=== PATIENT | male | born 1970 | race Caucasian/White ===

== ENCOUNTER 2023-10-05 06:10 | Inpatient (IN) ==
--- NOTE | 2023-09-16 14:00 | PAT Medication Instructions ---
Medication Instructions Date of Service September 16, 2023 Home Medications Medication Instructions Recorded triamcinolone acetonide 0.1 % 1 applic topical BID #80 grams 09/16/22 topical ointment omeprazole 20 mg capsule,delayed release 20 mg PO QAM triamcinolone acetonide 0.1 % topical ointment 1 applic topical BID albuterol sulfate 90 mcg/actuation aerosol inhaler 2 puff inhalation BID losartan 50 mg tablet 50 mg PO BID STOP taking 24 hours before surgery triamcinolone acetonide 0.1 % topical ointment 1 applic topical BID DO NOT take the morning of surgery losartan 50 mg tablet 50 mg PO BID Take morning of surgery With a small sip of water, OTHERWISE NOTHING TO EAT OR DRINK AFTER MIDNIGHT: omeprazole 20 mg capsule,delayed release 20 mg PO QAM albuterol sulfate 90 mcg/actuation aerosol inhaler 2 puff inhalation BID(please bring with you to hospital day of surgery if possible) Take evening before surgery albuterol sulfate 90 mcg/actuation aerosol inhaler 2 puff inhalation BID losartan 50 mg tablet 50 mg PO BID Other Notes If you have any questions please call us at [phone] or [phone] or [phone] or [phone]
--- NOTE | 2023-09-21 11:14 | Anesthesiology Consultation ---
Date of Service September 21, 2023 Assessment & Plan (1) Encounter for pre-operative examination: - upcoming [place] PCP medical clearance 09/26/23. PAT testing to be faxed to [facility]. Chart Review Chart Review: Pending: Refer to Additional Notes / Consult section and Patient seen in Pre Admission Testing Teaching & Discussion Pre-Anesthesia Teaching/Discussion Notes: Instructed NPO after midnight before surgery, except medications with 15 cc of water. Medication instructions provided according to the PAT guidelines. History Surgery Operation Date: 10/05/23 12:25 Proposed Procedures p C6 Corpectomy, Spinal Cord Monitoring - Ziggy Garay DO Height/Weight Height: 5 ft 5 in Weight: 76 kg Allergies Allergy/AdvReac Type Severity Reaction Status Date / Time celecoxib [From Celebrex] Allergy Unknown listed in Verified 09/21/23 11:26 [place] records No Known Drug Allergies Allergy Verified 09/13/23 08:28 Medications Home Medications Medication Instructions Recorded Confirmed Last Taken omeprazole 20 mg capsule,delayed 20 mg PO QAM 06/16/20 09/13/23 Unknown release triamcinolone acetonide 0.1 % 1 applic topical BID #80 grams 09/16/22 09/13/23 Unknown topical ointment albuterol sulfate 90 mcg/actuation 2 puff inhalation BID 09/13/23 09/13/23 Unknown aerosol inhaler losartan 50 mg tablet 50 mg PO BID 09/13/23 09/13/23 Unknown Past Medical History Medical History (Updated 09/21/23 @ 11:11 by Krystina Claudio PA-C) Asthma uses inhaler daily, unknown triggers, PFTs just done through the [place] GERD (gastroesophageal reflux disease) controlled, stable per pt Hypertension variable per pt Patient denies h/o stroke, seizures, heart attack, heart failure, DM, blood clots/DVTs or blood transfusions. Exercise / Class Metabolic Activity II 4-5 Yardwork/Stairs/Walk up hill (denies chest discomfort or shortness of breath with 1 FOS) Past Family History Family History (Updated 06/16/20 @ 14:25 by Bisi Loredo RN) Other No family history of adverse response to anesthesia Past Surgical History Surgical History (Updated 09/13/23 @ 08:37 by Gaby Gil RN) History of repair of rotator cuff right History of vasectomy Hx of arthroscopy of left knee x 2 Past Anesthesia History No Hx of Anesthesia Complications and No Family Hx of Anesthesia Complications History of PONV No Hx of PONV and No Hx of Motion Sickness Social History Smoking Status: Never smoker tobacco type: smokeless tobacco Do You Dip or Chew Tobacco: Yes (3 cans/week-advised) Hx Alcohol Use: Yes Alcohol type: beer alcohol intake frequency: a few times a week Hx Substance Use: No substance use type: does not use Review of Systems Snoring, denies witnessed apneas. Patient denies chest pain, shortness of breath, dyspnea on exertion, fever, chills, or palpitations. Physical Exam Vital Signs Vitals BP 256/95 P 71 TEMP 98.4 SP02 97% on RA RESP 17 Physical Patient resting comfortably in chair in no acute distress, alert and oriented, responding appropriately throughout visit Full cervical extension range of motion without pain TMD 3.5 finger breadths Mallampati Score 2 Dentition: intact, denies chipped or loose teeth, caps/crowns, implants or bridges Lungs: normal respiratory effort. Good air movement, clear throughout to auscultation, no adventitious breath sounds Cardiac: regular rate and rhythm, no murmurs noted Carotid arteries: negative bruit bilat Lab Results Anesthesia Preop Results Results Anesthesia Widget: WBC 4.55 K/ul (4.8-10.8) L 09/21/23 Hgb 13.8 g/dl (14.0-18.0) L 09/21/23 Hct 39.1 % (42.0-52.0) L 09/21/23 Plt 168 K/uL (130-400) 09/21/23 Na 137 mmol/L (136-145) 09/21/23 K 3.8 mmol/L (3.5-5.1) 09/21/23 Cl 102 mmol/L (98-107) 09/21/23 CO2 27 mmol/L (21-32) 09/21/23 BUN 10 mg/dl (6-23) 09/21/23 Creat 0.81 mg/dl (0.6-1.4) 09/21/23 Glucose Level 91 mg/dl (70-99(Fasting)) 09/21/23 PT 11.5 Seconds (9.0-12.0) 09/21/23 PTT 28.2 Seconds (21.0-31.0) 09/21/23 INR 1.1 (0.9-1.1) 09/21/23 Urine Color Yellow 09/21/23 Urine Appearance Clear (Clear) 09/21/23 Urine pH 5.5 (4.5-7.5) 09/21/23 Urine Specific [place] 1.011 (1.000-1.030) 09/21/23 Urine Protein Negative (Negative) 09/21/23 Urine Glucose (UA) Negative (Negative) 09/21/23 Urine Ketones Trace (Negative) H 09/21/23 Urine Blood Negative (Negative) 09/21/23 Urine Nitrite Negative (Negative) 09/21/23 Urine Bilirubin Negative (Negative) 09/21/23 Urine Urobilinogen Negative (Negative) 09/21/23 Urine Leukocyte Esterase Negative (Negative) 09/21/23 Blood Type O Negative 09/21/23 Antibody Screen NEGATIVE 09/21/23 Testing Electrocardiogram Date: 09/21/23 NSR, rate 72 bpm Chest X-Ray Date: 09/21/23 No acute cardiopulmonary findings
[~2023-10-05 06:10] MED LIST: ACETAMINOPHEN 500 MG TAB PO SCH; ALLERGY Noted to ORDERED Medication SCH; CeleBREX 200 MG CAP PO SCH; GABAPENTIN 900 MG DOSE PO SCH; LR 15ML/HR IV SCH; LR 60ML/HR IV SCH; ceFAZolin 2000MG 2,000 MG/15 ML SYR IV SCH
[2023-10-05] MEDS ORDERED: ATROPINE SULFATE 0.1 MG/ML 10ML SYR IV PRN (06:47)
[2023-10-05] MEDS ORDERED: PROMETHAZINE HCL 12.5 MG in SODIUM CHLORIDE 0.9% 50 ML IV PRN ×2 (06:47→10:49)
[2023-10-05] MEDS ORDERED: ONDANSETRON INJ 2 MG/ML 2 ML VIAL IV PRN ×2 (06:47→10:49)
[2023-10-05] MEDS ORDERED: HYDROmorphone INJ 1 MG/ML SYRINGE IV PRN ×2 (06:47→10:49)
[2023-10-05] MEDS ORDERED: LABETALOL HCL IV 5 MG/ML 20ML IV PRN (06:47)
[2023-10-05] MEDS ORDERED: fentaNYL citrate PF 100 MCG/2 ML VIAL ONE (06:51)
[2023-10-05] MEDS ORDERED: MIDAZOLAM HCL 1 MG/ML 2ML VIAL ONE (06:51)
[2023-10-05] MEDS ORDERED: ROCURONIUM BROMIDE 10 MG/ML 5 ML VIAL IV ONE (06:55)
[2023-10-05] MEDS ORDERED: FAMOTIDINE/PF 20 MG/2 ML VIAL IV ONE (06:55)
[2023-10-05] MEDS ORDERED: BUPIVACAINE/EPINEPHRINE 0.25% 1:200,000 30 ML VIAL ONE (07:19)
[2023-10-05] MEDS ORDERED: ceFAZolin 330 MG/ML 1 GM VIAL ONE (07:19)
--- NOTE | 2023-10-05 07:40 | History & Physical Bridge Note ---
Date of Service October 05, 2023 History & Physical Bridge Note I have examined the patient, reviewed the History & Physical and in the interval since the performance of the History & Physical I have noted the following changes of clinical significance: no changes noted
--- NOTE | 2023-10-05 07:41 | History & Physical Report ---
Date of Service October 05, 2023 Assessment & Plan (1) Cervical stenosis of spinal canal: Plan: C6 corpectomy History of Present Illness Chief Complaint: Neck and arm pain Primary Care Provider: Roseann Bullard PA-C This is a 53-year-old male with chronic persistent neck and arm pain after fail ing course of nonoperative care is here for surgical invention. Allergies Allergy/AdvReac Type Severity Reaction Status Date / Time celecoxib [From Celebrex] Allergy Mild listed in Verified 10/05/23 06:52 [facility]- [facility] per patient No Known Drug Allergies Allergy Unknown Verified 10/05/23 06:54 Home Medications Medication Instructions Recorded Confirmed Type omeprazole 20 mg capsule,delayed 20 mg PO QAM 06/16/20 10/05/23 History release triamcinolone acetonide 0.1 % 1 applic topical BID #80 grams 09/16/22 10/05/23 Rx topical ointment albuterol sulfate 90 mcg/actuation 2 puff inhalation BID PRN 09/13/23 10/05/23 History aerosol inhaler Shortness Of Breath Or Wheezing losartan 50 mg tablet 50 mg PO BID 09/13/23 10/05/23 History Past Med/Surg History Medical History (Updated 10/05/23 @ 07:41 by Ziggy Garay DO) GERD (gastroesophageal reflux disease) controlled, stable per pt Hypertension variable per pt Asthma uses inhaler daily, unknown triggers, [facility] Surgical History History of vasectomy History of repair of rotator cuff right Hx of arthroscopy of left knee x 2 Family History (Updated 06/16/20 @ 14:25 by Bisi Loredo RN) Other No family history of adverse response to anesthesia Social History (Updated 06/14/22 @ 14:45 by Whit Starkey MA) Smoking Status: Never smoker Tobacco Type: Smokeless Tobacco (Dip or Chew) Second Hand Exposure: No; Do You Dip or Chew Tobacco: Yes (3 cans/week-advised); Tobacco Cessation Education Requested by Patient: No Hx Alcohol Use: Yes Alcohol type: beer Hx Substance Use: No Preferred Language: [place] Communication Ability: 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
[2023-10-05] MEDS ORDERED: HYDROmorphone INJ 2 MG/ML SYR/VIAL ONE (08:15)
[2023-10-05] MEDS ORDERED: DEXAMETHASONE SOD INJ 4 MG/ML VIAL ONE (08:18)
[2023-10-05] MEDS ORDERED: ONDANSETRON INJ 2 MG/ML 2 ML VIAL ONE (08:18)
[2023-10-05] MEDS ORDERED: PROPOFOL IV EMULSION 10 MG/ML 20 ML VIAL IV ONE (08:18)
[2023-10-05] MEDS ORDERED: LIDOCAINE 2% 2 ML VIAL/AMP(20MG/ML) INFIL ONE (08:18)
[2023-10-05] MEDS ORDERED: METOCLOPRAMIDE HCL INJ 5 MG/ML 2 ML VIAL ONE (08:18)
[2023-10-05] MEDS ORDERED: ePHEDrine sulfate 50 MG/5 ML SYR ONE (08:21)
[2023-10-05] MEDS ORDERED: SUGAMMADEX SODIUM 200 MG/2 ML VIAL IV ONE (08:42)
[2023-10-05] MEDS ORDERED: KETOROLAC 30 MG/ML VIAL ONE (08:44)
[2023-10-05] MEDS ORDERED: FLOSEAL HEMOSTATIC MATRIX 10ML TOP ONE (09:11)
--- NOTE | 2023-10-05 09:11 | Operative Report ---
Post Operative Report Pre & Post Diagnosis Operation Date: 10/05/23 07:45 Pre-Op Diagnosis: Cervical spinal stenosis with radiculopathy Post-Op Diagnosis: Same I identified the patient and participated in the time-out.: Yes Procedure Operation Date: 10/05/23 07:45 Actual Procedures #1 anterior cervical corpectomy with bilateral foraminotomies C6. #2 anterior cervical arthrodesis C5-C7. #3 placement of 23 mm peek cage C5-C7. #4 placement locally harvested morselized autograft combined with I factor in the interbody cage. #5 placement of K2 M plate and screws from C5-C7. Surgeon Ziggy Garay, DO Gelatin Maker Utility Yolanda Combs Estimated Blood Loss 10 Findings Consistent with Post-Op Diagnosis Specimens None Indications This is a 53-year-old male who presents above-mentioned diagnosis of failed course of nonoperative care is here for surgical invention. Description of Procedure Patient was met with identified informed consent obtained. Patient was then taken to the operative suite underwent patient placed in supine position ingestible head Marquez head of product. All bony promises well-padded I suspected to ensure no external precipice spinal. This point the anterior cervical spine was prepped and draped in a sterile fashion. With assistance of fluoroscopy identified the C6 vertebral body and a transverse incision was placed along the right anterior aspect of the cervical spine overlying this region. Blunt dissection with the assistance of bipolar electrocautery was then performed down to exposing the anterior cervical spine from C5-C7. Self-retaining tractors placed. I then performed a complete discectomy of C5-C6 out to the uncovertebral joints bilaterally followed by C6-C7. Paulina distracting pins were then placed in C5 and C7 to distract across the C C6 vertebral body. A complete corpectomy was then performed including removal of all posterior annular fibers longitudinal ligament bilateral foraminotomies performed. Endplates were to subcortical mean bone and a 23 mm peek cage filled with locally harvested morselized autograft and I factor tapped in position. Distracting apparatus was removed and a K2 M plate and screws applied with the assistance of fluoroscopy. The incision was then copiously irrigated explored to ensure no damage to surrounding structures or remaining bleeding. 10 round MELODY drain inserted. Incision was then closed with 2 Vicryl in the fascia and 4 Monocryl for final closure. Steri-Strips sterile dressings placed. Patient waken taken to PACU stable condition. Please note spinal cord monitoring was utilized at the procedure no changes noted. Lastly Yolanda Combs was present that the entire surgery involved the patient positioning complex portion of the surgery and final skin closure. I attest to the content of the Intraoperative Record and any orders documented therein. Any exceptions are noted below.
--- NOTE | 2023-10-05 10:04 | Fluoroscopy Report ---
INTRAOPERATIVE RADIOGRAPHS CLINICAL HISTORY: Cervical spinal fusion. Fluoro time: 11 seconds Ka,r: 3.30 mGy FINDINGS: 2 spot fluoroscopic views of the cervical spine are presented. There has been corpectomy of C6 with anterior fusion at C5-C7. The orthopedic hardware appears intact. A surgical drain is in sophie ce. An endotracheal tube is noted. IMPRESSION: Intraoperative images from cervical spine fusion surgery as above. Electronically signed by: Nilesh Davis M.D. 10/05/2023 10:03 AM
--- NOTE | 2023-10-05 10:28 | Anesthesiology Progress Note ---
Date of Service October 05, 2023 Anesthesia Post Procedure Vital Signs Vital Signs: Temp Pulse Pulse Resp BP BP Pulse Ox 10/05/23 10:10 88 18 150/94 H 97 10/05/23 10:00 73 14 144/90 H 98 10/05/23 09:50 74 16 152/88 H 98 10/05/23 09:40 87 20 138/82 99 10/05/23 09:30 36.3 C L 93 H 14 136/86 99 10/05/23 06:55 36.7 C 75 18 139/96 97 O2 Del Method O2 Flow Rate 10/05/23 10:10 Nasal Cannula 2 10/05/23 10:00 Oxymask 3 10/05/23 09:50 Oxymask 4 10/05/23 09:40 Oxymask 4 10/05/23 09:30 Oxymask 6 10/05/23 06:55 Room Air Pain Intensity Neck: Pain Intensity: 3 Transfer of Care Handoff Completed per policy Notes Mental Status: alert / awake / arousable Patient Amnestic to Procedure: Yes Nausea / Vomiting: adequately controlled Pain: adequately controlled Airway Patency, RR, SpO2: stable & adequate BP & HR: stable & adequate Hydration State: stable & adequate Anesthetic Complications: no major complications apparent
[2023-10-05] MEDS ORDERED: FAMOTIDINE 20 MG TAB PO PRN (10:49)
[2023-10-05] MEDS ORDERED: NALOXONE HCL 0.4 MG/1 ML VIAL/CARP IV PRN (10:49)
[2023-10-05] MEDS ORDERED: DO NOT ADMINISTER PNEUMOCOCCAL VACCINE PRN (10:49)
[2023-10-05] MEDS ORDERED: MAGNESIUM HYDROXIDE SUSP 30 ML UDC PO PRN (10:49)
[2023-10-05] MEDS ORDERED: RACEPINEPHRINE 2.25% NEBU SOLN 0.5 ML VIAL INH PRN (10:49)
[2023-10-05] MEDS ORDERED: METOCLOPRAMIDE HCL INJ 5 MG/ML 2 ML VIAL IV PRN (10:49)
[2023-10-05] MEDS ORDERED: dexAMETHasone 8 MG in SYRINGE 0 ML IV PRN (10:49)
[2023-10-05] MEDS ORDERED: LORazepam 0.5 MG TAB PO PRN (10:49)
[2023-10-05] MEDS ORDERED: LACTATED RINGER'S 1,000 ML IV SCH (10:49)
[2023-10-05] MEDS ORDERED: ALUMINUM/MAGNESIUM SUSP 30 ML UDC PO PRN (10:49)
[2023-10-05] MEDS ORDERED: LORazepam 2 MG/1 ML VIAL IV PRN (10:49)
[2023-10-05] MEDS ORDERED: ACETAMINOPHEN 1,000 MG/100 ML VIAL IV PRN (10:49)
[2023-10-05] MEDS ORDERED: ONDANSETRON 4 MG OD TAB PO PRN (10:49)
[2023-10-05] MEDS ORDERED: traMADol HCL 50 MG TABLET PO PRN (10:49)
[2023-10-05] MEDS ORDERED: SOD PHOSPHATE/SOD BIPHOSPHATE ENEMA 132 ML BTL PR PRN (10:49)
[2023-10-05] MEDS ORDERED: bisacodyL 10 MG SUPP PR PRN (10:49)
[2023-10-05] MEDS ORDERED: oxyCODONE HCL IR 5 MG TAB (IMMEDIATE RELEASE) PO PRN (10:49)
[2023-10-05] MEDS ORDERED: diphenhydrAMINE Capsule 25 MG CAP PO PRN (10:49)
[2023-10-05] MEDS ORDERED: hydrOXYzine HCl 25 MG TAB PO PRN (10:49)
[2023-10-05] MEDS ORDERED: DO NOT ADMINISTER FLU VACCINE PRN (10:49)
[2023-10-05] MEDS ORDERED: ALBUTEROL HFA 8 GM INHALER INH PRN (10:49)
[2023-10-05] MEDS ORDERED: HYDROmorphone INJ 0.5 MG/0.5 ML SYR IV PRN (10:49)
[2023-10-05] MEDS: ceFAZolin 2000MG 2,000 MG/15 ML SYR IV SCH ×2 (14:00→22:23)
[2023-10-05] MEDS ORDERED: LORazepam 0.5 MG in SYRINGE 0.25 ML IV PRN (14:32)
[2023-10-05] MEDS: LOSARTAN POTASSIUM 50 MG TAB PO SCH (19:53)
[2023-10-05] MEDS: ACETAMINOPHEN 500 MG TAB PO PRN (19:55)
[2023-10-05] MEDS ORDERED: DOCUSATE SODIUM/SENNA 50/8.6MG TAB PO SCH (21:00)
[2023-10-06 04:47] VITALS: RESP 16
[2023-10-06] MEDS: ACETAMINOPHEN 500 MG TAB PO PRN (05:57)
[2023-10-06] MEDS ORDERED: POLYETHYLENE (MIRALAX) 17 GM PACK PO SCH (06:00)
[2023-10-06 07:03] LABS: Basophils # (auto) 0.01 K/uL (0.00-0.20); Basophils % (auto) 0.1 %; Hematocrit (blood only) 38.9 % (42.0-52.0); Hemoglobin 13.5 g/dl (14.0-18.0); Immature Granulocytes # (auto) 0.03 K/uL (0.01-0.20); Immature Granulocytes % (auto) 0.3 %; Lymphocytes # (auto) 1.02 K/uL (1.20-3.40); Lymphocytes % (auto) 10.8 %; Mean Corpuscular Hemoglobin 32.8 pg (25.0-34.0); Mean Corpuscular Hgb Conc 34.7 g/dL (32.0-36.0); Mean Corpuscular Volume 94.4 fL (80.0-100.0); Monocytes # (auto) 0.96 K/uL (0.11-0.59); Monocytes % (auto) 10.2 %; Neutrophils # (auto) 7.43 K/uL (1.40-6.50); Neutrophils % (auto) 78.6 %; Platelet Count 186 K/uL (130-400); RDW Coefficient of Variation 11.9 % (11.5-14.5); RDW Standard Deviation 41.2 fL (36.4-46.3); Red Blood Count 4.12 M/uL (4.70-6.10); White Blood Count 9.45 K/ul (4.8-10.8)
[2023-10-06 07:31] LABS: BUN Creatinine Ratio 13.6 (10-20); Calcium 9.4 mg/dl (8.6-10.3); Creatinine Clr Calc Pharmacy 98.9 ml/min; Est GFR (African American) 116.8 ml/min; Est GFR (Non-African American) 100.8 ml/min; Potassium 3.8 mmol/L (3.5-5.1)
[2023-10-06] MEDS: LOSARTAN POTASSIUM 50 MG TAB PO SCH (07:44)
[2023-10-06 07:48] VITALS: TEMP 98.4
[2023-10-06] MEDS ORDERED: PANTOprazole 40 MG TAB PO SCH (09:00)
[2023-10-06] MEDS ORDERED: dexAMETHasone 6 MG in SYRINGE 0 ML IV SCH (09:00)
--- NOTE | 2023-10-06 10:31 | Discharge Summary ---
Date of Service October 06, 2023 Admission HPI Per Admitting Provider This is a 53-year-old male with chronic persistent neck and arm pain after failing course of nonoperative care is here for surgical invention. Admission Exam (Per Admitting) Constitutional WD/WN, vitals as above Eyes normal visual sheth by confrontation ENMT external ear and nose normal, oropharynx normal Neck normal visual inspection Respiratory normal respiratory effort Cardiovascular Extremities: normal capillary refill Gastrointestinal (Abdomen) Inspection/Auscultation: abdomen normal to inspection Musculoskeletal Head/Neck/Chest: + limited ROM of neck Extremities: extremities normal to inspection and strength 5/5 throughout Skin no rashes, warm and dry Neurologic normal touch/pain/proprioception and moves all extremities Psychiatric A+Ox3, euthymic affect Eye Contact: good eye contact Discharge Data Procedures Performed Operation Date: 10/05/23 07:45 Actual Procedures p C6 Corpectomy, Spinal Cord Monitoring - Ziggy Garay DO Hospital Course (1) Cervical stenosis of spinal canal: Marino is being discharged home on postoperative day 1 status post ACDF C5-6, 6 7. He has had an uneventful postoperative course. He is up and ambulatory. Denies any dysphonia or dysphagia. MELODY drain output last shift was 20 cc. He is up and ambulatory and using the restroom without issue. Discharge Instructions ACTIVITY RECOMMENDATIONS: SELF CARE INSTRUCTIONS AFTER CERVICAL FUSIONS 1. No smoking. Smoking drastically decreases the chance of a solid fusion. 2. No bending, lifting more than 5 pounds, or twisting (roll like a log when turning in bed). 3. You may shower 3 days after surgery. Thoroughly dry wound. Do not soak in the tub. 4. Cervical collar: Must be worn at all times including sleeping. You may remove the brace only to bath, eat and if you are sitting in a recliner. 5. Please walk as much as you can for exercise. Gradually increase the distance that you walk as your endurance increases. SPECIAL CARE INSTRUCTIONS: VERY IMPORTANT TO READ AND REVIEW A. Do not take any anti-inflammatory medications (i.e. Indocin, Advil, Aspirin, Naprosyn, Aleve, Motrin, etc.) as these may inhibit the chance of a solid fusion. Tylenol is okay to take. B. Your surgical incision has been closed with a cosmetic suture under the skin that will dissolve in about 6 weeks. In 14 days, you can use a pair of clean scissors and cut the suture that is left outside of the skin at the ends of your incision. C. Complications are uncommon, but please contact us if you have any signs or symptoms of: 1. wound infection (fever higher than 102.5 degrees F, redness, separation of wound, drainage, or increasing pain from the incision) 2. blood clots in legs (pain, swelling, redness and warmth in legs) 3. urinary tract infection (fever higher than 102.5 degrees, burning upon urination or increased frequency of urination) 4. nerve problems (inability to walk on your toes or heels, numbness, loss of bowel or bladder control) 5. any other symptoms that concern you. D. Please call the office at if you have any concerns or questions about your operation or recovery. MANAGING PAIN AFTER SPINAL SURGERY 1. Narcotic medication is intended for short-term use and will be provided for surgical pain. Surgical pain usually lasts for a period of 4-6 weeks. Narcotic medication includes Percocet, Vicodin, Darvocet, Tylenol #3 or Lortab. 2. Longer-term pain is more appropriately treated with non-narcotic medication such as Tylenol ES. 3. Muscle spasm is not appropriately treated with narcotics. Muscle relaxers such as Soma, Flexeril or Skelaxin can be used along with Tylenol ES. 4. Remember that we all live with some "aches and pains". This is not unusual or uncommon after an injury or as we get older. 5. We will provide appropriate medication within the normal guidelines of their prescribed use. We will also be very cautious and aware of potential abuse and extended duration of patients' medication needs. 6. Please allow 2-3 days to process refills. Prescriptions will not be mailed but must be picked up at the office. FOLLOW UP VISIT: Keep your scheduled follow-up appointment. Any questions, please call the office at .
[2023-10-06 10:44] VITALS: PULSE 76
[2023-10-06 11:48] VITALS: BP 140/62; O2SAT 98
== END 2023-10-06 11:57 | disposition home or self-care (01) | DRG 473 ==
LOC: ASU 06:10 → 3E 09:14
DX: J45.909 Unspecified asthma, uncomplicated; K21.9 Gastro-esophageal reflux disease without esophagitis; M48.02 Spinal stenosis, cervical region; M54.12 Radiculopathy, cervical region; I10 Essential (primary) hypertension